=== PATIENT | male | born 1965 | race Hispanic/Latino ===

== ENCOUNTER 2021-01-27 12:28 | Observation (INO) | payer SELFPAY ==
[~2021-01-27] VITALS: Ht 170.2 cm; Wt 91.3 kg
[2021-01-27 12:44] LABS: BASOPHILS % (AUTO) 0.4 % (0.0-5.0); EOSINOPHILS % (AUTO) 0.9 % (0.0-8.0); HEMATOCRIT 40.1 % (42-54); LYMPHOCYTES % (AUTO) 29.9 % (21.0-51.0); MEAN CORPUSCULAR HEMOGLOBIN 30.7 pg (27.0-33.0); MEAN CORPUSCULAR HGB CONC 35.2 g/dL (32.0-36.0); MEAN CORPUSCULAR VOLUME 87.4 fL (79-99); MONOCYTES % (AUTO) 8.4 % (3.0-13.0); NEUTROPHILS % (AUTO) 60.1 % (40.0-77.0); PLATELET COUNT (AUTO) 258 K/uL (130-400); RED BLOOD CELL COUNT(AUTO) 4.59 MIL/uL (4.50-6.20); RED CELL DISTRIBUTION WIDTH 11.9 % (11.0-15.5)
[2021-01-27 12:49] LABS: APPEARANCE,URINE Clear (CLEAR); BILIRUBIN,URINE Negative (NEGATIVE); COLOR,URINE Yellow (YELLOW); GLUCOSE, URINE (UA) Negative (NEGATIVE); KETONES,URINE Negative (NEGATIVE); LEUKOCYTE ESTERASE ,URINE Negative (NEGATIVE); NITRATE,URINE Negative (NEGATIVE); OCCULT BLOOD,URINE Negative (NEGATIVE); PROTEIN,URINE Negative (NEGATIVE)
[2021-01-27 12:58] LABS: POTASSIUM 3.6 mmol/L (3.5-5.1)
[2021-01-27] MEDS ORDERED: ASPIRIN 325MG TAB PO ONE (13:00)
[2021-01-27 13:02] LABS: BILIRUBIN,TOTAL 0.4 mg/dL (0.2-1.0); TOTAL PROTEIN, SERUM 7.9 g/dL (6.0-8.3)
[2021-01-27 13:12] LABS: INR 1.01 (0.85-1.15)
[2021-01-27 13:14] LABS: CHOLESTEROL 228 mg/dL (<200); HDL CHOLESTEROL 36 mg/dL (29-71); LDL DIRECT 139 mg/dL (0-99); TRIGLYCERIDES 275 mg/dL (30-200)
[2021-01-27 13:15] LABS: AMPHET/METH SCREEN,URINE NEGATIVE (NEGATIVE); BARBITURATE SCREEN, URINE NEGATIVE (NEGATIVE); BENZODIAZEPINES SCREEN,URINE NEGATIVE (NEGATIVE); CANNABINOID SCREEN,URINE NEGATIVE (NEGATIVE); COCAINE SCREEN,URINE NEGATIVE (NEGATIVE); OPIATE SCREEN,URINE NEGATIVE (NEGATIVE); PHENCYCLIDINE SCREEN,URINE NEGATIVE (NEGATIVE)
[2021-01-27] MEDS ORDERED: HYDRALAZINE 20MG/ML VIAL IV PRN (16:00)
[2021-01-27] MEDS ORDERED: ONDANSETRON 4MG INJ IV PRN (16:00)
[2021-01-27] MEDS ORDERED: PANTOPRAZOLE 40 MG TAB DR PO SCH (16:00)
[2021-01-27] MEDS: 0.9%NACL 1000ML 1,000 ML IV SCH (16:41)
[2021-01-27] MEDS: FAMOTIDINE 20MG VIAL IV SCH (20:20)
[2021-01-27 21:30] VITALS: BP 103/78
[2021-01-28] VITALS: BP 108/69
[2021-01-28 04:00] VITALS: BP 127/80
[2021-01-28 06:39] LABS: ALBUMIN 3.6 g/dL (3.5-5.0); BILIRUBIN,TOTAL 0.4 mg/dL (0.2-1.0); CREATININE 1.1 mg/dL (0.5-1.5); POTASSIUM 3.9 mmol/L (3.5-5.1); TOTAL PROTEIN, SERUM 7.2 g/dL (6.0-8.3)
[2021-01-28 08:00] VITALS: BP 126/86
[2021-01-28] MEDS: ASPIRIN 81 MG EC TAB PO SCH (08:19)
[2021-01-28] MEDS: PANTOPRAZOLE 40 MG TAB DR PO SCH (08:21)
[2021-01-28] MEDS: FAMOTIDINE 20MG VIAL IV SCH (08:24)
[2021-01-28] MEDS: 0.9%NACL 1000ML 1,000 ML IV SCH ×2 (08:24→22:03)
[2021-01-28] MEDS: ENOXAPARIN SODIUM 40 MG/0.4 ML SYRINGE SQ SCH (08:25)
[2021-01-28 11:54] VITALS: BP 139/84
[2021-01-28 16:00] VITALS: BP 132/81
[2021-01-28 20:00] VITALS: BP 140/86
[2021-01-29] VITALS: BP 109/63
[2021-01-29 04:00] VITALS: BP 114/61
[2021-01-29 06:40] LABS: ALBUMIN 3.7 g/dL (3.5-5.0); BILIRUBIN,DIRECT 0.1 mg/dL (0.0-0.3); BILIRUBIN,TOTAL 0.6 mg/dL (0.2-1.0); TOTAL PROTEIN, SERUM 7.6 g/dL (6.0-8.3)
[2021-01-29 08:00] VITALS: BP 125/80
[2021-01-29] MEDS ORDERED: ATORVASTATIN 20 MG TABLET PO SCH (09:00)
[2021-01-29] MEDS: ENOXAPARIN SODIUM 40 MG/0.4 ML SYRINGE SQ SCH (09:00)
[2021-01-29] MEDS: PANTOPRAZOLE 40 MG TAB DR PO SCH (09:48)
[2021-01-29] MEDS: ASPIRIN 81 MG EC TAB PO SCH (09:49)
[2021-01-29 12:00] VITALS: BP 118/76
[2021-01-29 16:00] VITALS: BP 116/76
[2021-01-29] MEDS ORDERED: CEFTRIAXONE 1G VIAL IVP SCH (16:00)
[2021-02-01 11:10] LABS: HEPATITIS Bs ANTIGEN SCREEN P Negative (Negative)
== END 2021-01-29 16:00 | disposition home or self-care (01) ==
LOC: EDH 12:28 → EDHIP 12:29 → UNDOADMOB 15:55 → EDHIP 15:55 → 4CH 21:41
PROVIDERS: ADMIT Internal Medicine; ATTEND Internal Medicine
DX: R07.89 Other chest pain (principal); Z20.822 Contact with and (suspected) exposure to COVID-19; I34.0 Nonrheumatic mitral (valve) insufficiency; I25.10 Atherosclerotic heart disease of native coronary artery without angina pectoris; K75.9 Inflammatory liver disease, unspecified; E66.9 Obesity, unspecified; E78.5 Hyperlipidemia, unspecified; F17.210 Nicotine dependence, cigarettes, uncomplicated; Z90.49 Acquired absence of other specified parts of digestive tract; Z79.899 Other long term (current) drug therapy; Z98.890 Other specified postprocedural states; Z79.82 Long term (current) use of aspirin; Z68.31 Body mass index [BMI] 31.0-31.9, adult
CPT/HCPCS: 36415 ×3; 71045; 76705; 80053 ×2; 80061; 80076; 80305; 81003; 82550 ×3; 83874 ×3; 84484 ×4; 85025; 85610; 86706 ×2; 86717; 87340 ×2; 87350; 87520; 87635; 93005 ×2; 93306; 93356; 96361 ×2; 96374; 96375; 99285; G0378 ×47; J0696; J1650; J3490